=== PATIENT | female | born 1975 | race Caucasian/White ===

== ENCOUNTER → 2021-04-14 12:32 | Outpatient (CLI) | payer BC, SELFPAY ==
--- NOTE | ~2021-04-14 | MM_ITS ---
EXAMINATION: MM screening [facility] BI w rodney HISTORY: Screening mammogram TECHNIQUE: Craniocaudal and mediolateral oblique 3-D tomosynthesis images were obtained and synthetic 2-D images were generated. CAD analysis was submitted and interpreted. COMPARISON: 10/28/2017 bilateral digital screening mammogram BREAST PARENCHYMAL COMPOSITION: The breasts are heterogeneously dense, which may obscure small masses . FINDINGS: There is focal asymmetry in the lower outer right breast; diagnostic right mammogram is rec ommended, with ultrasound if required. Otherwise there is no evidence of suspicious mass, calcification, or architectural distortion to sug gest malignancy in either breast. There has been no other suspicious interval change. IMPRESSION: There is focal asymmetry in the lower outer right breast; diagnostic right mammogram is recommended, with ultrasound if required. BI-RADS Category 0: Incomplete: Needs additional imaging evaluation. Reviewed, dictated and finalized at location A. IMPRESSION: There is focal asymmetry in the lower outer right breast; diagnostic right mamm ogram is recommended, with ultrasound if required. BI-RADS Category 0: Incomplete: Needs additional imaging evaluation.
== END ==
PROVIDERS: Visit Provider Student in an Organized Health Care Education/Training Program
DX: Z12.31 Encounter for screening mammogram for malignant neoplasm of breast (principal); R92.8 Other abnormal and inconclusive findings on diagnostic imaging of breast
CPT/HCPCS: 77063; 77067

== ENCOUNTER → 2021-05-19 08:19 | Outpatient (CLI) | payer BC, SELFPAY ==
--- NOTE | ~2021-05-19 | MMUS_ITS ---
EXAMINATION: MM diagnostic jhonny RT w rodney, US breast RT complete HISTORY: Follow-up right breast asymmetry TECHNIQUE: Additional 3-D tomosynthesis images of the right breast were performed and synthetic 2-D i mages were generated. CAD analysis was submitted and interpreted. High resolution complete right [facility]ishna st ultrasound was performed. COMPARISON: 04/14/2021 BREAST PARENCHYMAL COMPOSITION: The breasts are heterogenously dense, which may obscure small masses. FINDINGS: MAMMOGRAPHIC FINDINGS: There are no discrete masses, calcifications or architectural distortion in the left breast. ULTRASOUND: Complete right breast ultrasound: At 9:00, 5 cm from the nipple, there is an irregular shaped hypoechoic mass measuring 4 mm. No signif icant posterior acoustic shadowing or internal vascularity. The margins are irregular. IMPRESSION: 1. Irregular shaped hypoechoic right breast mass measuring 4 mm at 9:00, 5 cm from the nipple. 2. Ultrasound-guided right breast biopsy recommended. BI-RADS category 4, suspicious findings. Reviewed, dictated and finalized at location A. IMPRESSION: 1. Irregular shaped hypoechoic right breast mass measuring 4 mm at 9:00, 5 cm f rom the nipple. 2. Ultrasound-guided right breast biopsy recommended. BI-RADS category 4, suspicious findings.
== END ==
PROVIDERS: Visit Provider Obstetrics & Gynecology
DX: R92.8 Other abnormal and inconclusive findings on diagnostic imaging of breast (principal)
CPT/HCPCS: 76641; 77061; 77065; G0279

== ENCOUNTER → 2023-08-17 10:45 | Outpatient (CLI) | payer BC, SELFPAY ==
--- NOTE | ~2023-08-17 | MM_ITS ---
EXAMINATION: MM screening [facility] BI w rodney HISTORY: Screening mammogram TECHNIQUE: Craniocaudal and mediolateral oblique 3-D tomosynthesis images were obtained and synthetic 2-D images were generated. CAD analysis was submitted and interpreted. COMPARISON: 05/19/2021, 04/14/2021, 10/28/2017 BREAST PARENCHYMAL COMPOSITION: The breasts are heterogeneously dense, which may obscure small masses . FINDINGS: No suspicious mass, calcification, or architectural distortion are identified in either xin ast to suggest malignancy. There has been no suspicious interval change. IMPRESSION: 1. No mammographic evidence of malignancy. 2. Recommend routine screening mammography in one year. BI-RADS Category 1: Negative Reviewed, dictated and finalized at location A.
== END ==
PROVIDERS: PCP Family Medicine; Visit Provider Obstetrics & Gynecology
DX: Z12.31 Encounter for screening mammogram for malignant neoplasm of breast (principal)
CPT/HCPCS: 77063; 77067

== ENCOUNTER 2023-08-26 00:56 | Day surgery (SDC) | payer BC, SELFPAY ==
[2023-08-13 15:20] VITALS: BMI 22.8
--- NOTE | 2023-08-24 09:25 | PM.HPGS ---
History of Present Illness History of Present Illness Consent: Risks, benefits, and alternatives have been discussed and questions answered. Patient agrees to proceed with procedure. Chief complaint: neoplasm screening Narrative: Aide José is a 48 year old female who is referred for colon cancer screening. Review of Systems Review of Systems: All systems reviewed & are unremarkable except as noted in HPI and below PMFSH Past Medical History Medical History Essential tremor Surgical History Surgical History H/O tubal ligation Family History Family History Mother Familial tremor Grandparent Familial tremor Social History Social History Smoking status: Never smoker Second hand tobacco smoke exposure: No Alcohol intake: current Alcohol use details: 2X monthly Substance use: never Substance use type: does not use Lack of Transportation: No Lack of Food: Never True Current Housing: I Have Housing Concerned About Future Housing: No Difficulty Paying Gas/Electric Bills: No Difficulty Paying for Meds: No Currently Unemployed: No Education: Associate Degree Difficulty w/ Childcare or Family Care: No Living arrangements: with family Occupation/Education: occupation Gender identity (if verbalized by the patient): Female Sexual Orientation (if Verbalized by the Patient): Straight or Heterosexual Spiritual care concerns: No Meds Home Medications and Allergies Home Medications Medication Instructions Recorded Confirmed Type loratadine 10 mg tablet (Claritin) 10 mg PO DAILY PRN allgery symptoms 01/28/23 08/13/23 History melatonin 10 mg capsule 10 mg PO QHS 01/28/23 08/13/23 History acetaminophen 500 mg tablet 500 mg PO Q6H PRN Pain 08/13/23 08/13/23 History propranolol 40 mg tablet 20 mg PO BID PRN tremor(s) 08/13/23 08/13/23 History Allergies Allergy/AdvReac Type Severity Reaction Status Date / Time sulfamethoxazole Allergy Mild Chest Pain Verified 08/26/23 09:21 [From Bactrim] trimethoprim [From Bactrim] Allergy Mild Chest Pain Verified 08/26/23 09:21 Exam Const: General: alert Orientation/consciousness: patient oriented x3 Resp: Auscultation: clear to auscultation bilaterally Cardio: Rhythm: regular rhythm GI: GI Palp: Yes Soft to palpation and No Tenderness to palpation present (GI) Neuro: General: patient oriented x3 Assessment and Plan Assessment and plan (1) Colon cancer screening: Code(s): Z12.11 - Encounter for screening for malignant neoplasm of colon Status: Acute Assessment and Plan: Colonoscopy with possible biopsy or polypectomy or cautery or injection of substances.
[2023-08-26 09:22] VITALS: BP 151/94; PULSE 88; RESP 18; TEMP 36.3; O2SAT 100
[2023-08-26] MEDS: LACTATED RINGERS 1,000 ML 150 ML IV CONT (09:31)
--- NOTE | 2023-08-26 09:57 | WPDANESEPPF ---
Anes - Initial Pre Proc Eval Procedure: Operation Date: 08/26/23 10:30 Proposed Procedures p Colonoscopy - Calvin Story MD Date/Time: 08/26/23 09:57 Surgeon: Calvin Story MD Pre Op Diagnosis: neoplasm screening Patient Data Age: 48 Gender: F Height: 1.57 m Weight: 55.6 kg Last Vital Signs Temp 97.3 F L 08/26/23 09:22 Pulse 88 08/26/23 09:22 Resp 18 08/26/23 09:22 BP 151/94 H 08/26/23 09:22 Pulse Ox 100 08/26/23 09:22 O2 Del Method Room Air 08/26/23 09:22 Allergies Allergy/AdvReac Type Severity Reaction Status Date / Time sulfamethoxazole Allergy Mild Chest Pain Verified 08/26/23 09:21 [From Bactrim] trimethoprim [From Bactrim] Allergy Mild Chest Pain Verified 08/26/23 09:21 Home Medications Medication Instructions Recorded Confirmed Type loratadine 10 mg tablet (Claritin) 10 mg PO DAILY PRN allgery symptoms 01/28/23 08/13/23 History melatonin 10 mg capsule 10 mg PO QHS 01/28/23 08/13/23 History acetaminophen 500 mg tablet 500 mg PO Q6H PRN Pain 08/13/23 08/13/23 History propranolol 40 mg tablet 20 mg PO BID PRN tremor(s) 08/13/23 08/13/23 History Patient hx anesthesia problems: none Family hx anesthesia problems: none Results Review: All pre-operative results and documents have been reviewed as part of the pre-operative evaluation. [facility] Past Medical History Medical History Essential tremor Surgical History Surgical History H/O tubal ligation Family History Family History Mother Familial tremor Grandparent Familial tremor Social History Social History Smoking status: Never smoker Second hand tobacco smoke exposure: No Alcohol intake: current Alcohol use details: 2X monthly Substance use: never Substance use type: does not use Lack of Transportation: No Lack of Food: Never True Current Housing: I Have Housing Concerned About Future Housing: No Difficulty Paying Gas/Electric Bills: No Difficulty Paying for Meds: No Currently Unemployed: No Education: Associate Degree Difficulty w/ Childcare or Family Care: No Living arrangements: with family Occupation/Education: occupation Gender identity (if verbalized by the patient): Female Sexual Orientation (if Verbalized by the Patient): Straight or Heterosexual Spiritual care concerns: No Anes - Eval Final PreProcedure Day of Procedure 08/26/23 09:57 Patient weight: normal Heart: regular rate and rhythm Lungs: clear to auscultation Airway: Mallampati scale class II Neurological: alert and oriented Last oral intake: >/= 8 hours ASA classification: II Emergent: no Anesthetic plan: proceed Anesthesia type and monitoring: general GIVS and standard monitoring Results Review: All pre-operative results and documents have been reviewed as part of the pre-operative evaluation. Informed Consent: The patient's anesthetic plan and its attendant risks and benefits were discussed with the patient/family/POA. Questions were solicited and answers provided to the satisfaction of the patient/family/POA.
[2023-08-26 10:56] VITALS: BP 99/57; PULSE 76; RESP 21; O2SAT 100
[2023-08-26 11:06] VITALS: BP 114/78; PULSE 59; RESP 19; O2SAT 99
[2023-08-26 11:16] VITALS: BP 138/86; PULSE 58; RESP 18; O2SAT 100
== END 2023-08-26 11:27 | disposition home or self-care (01) ==
PROVIDERS: PCP Family Medicine; Visit Provider Internal Medicine Gastroenterology
PROC: 0DJD8ZZ Inspection of Lower Intestinal Tract, Via Natural or Artificial Opening Endoscopic (ICD-10-PCS; CPT 45378; principal; 2023-08-26 10:30)
DX: Z12.11 Encounter for screening for malignant neoplasm of colon (principal); K63.5 Polyp of colon
CPT/HCPCS: 45380; 45385; 88305; J2001; J2704; J7120

== ENCOUNTER 2024-03-29 05:13 | Emergency (ER) | payer BC, SELFPAY ==
--- NOTE | ~2024-03-29 | XR_ITS ---
XR chest 2V DATE: 03/29/2024 05:47 INDICATION: Midsternal chest pain TECHNIQUE: PA and lateral views COMPARISON: None FINDINGS: Normal heart size. No hilar or mediastinal enlargement. Bilateral hyperinflation. No pulmonary infiltrate or consolidation, pleural effusion or pulmonary vascular congestion or pneumo thorax. Include skeletal structures are unremarkable. IMPRESSION: Bilateral hyperinflation Reviewed, dictated and finalized at location A. IMPRESSION: Bilateral hyperinflation
--- NOTE | 2024-03-29 05:14 | ECG_ITS ---
SEE SCANNED COPY FOR CONFIRMED REPORT MTDD
[2024-03-29 05:22] VITALS: BP 177/95; PULSE 71; RESP 14; TEMP 36.8; O2SAT 100
[2024-03-29 05:31] VITALS: BP 155/89; PULSE 91; RESP 17; O2SAT 100
[2024-03-29 05:33] VITALS: PULSE 95; O2SAT 100
[2024-03-29 05:36] LABS: Basophils Absolute Auto 0.1 K/mm3 (0.0-0.1); Basophils Percent Auto 0.8 % (0.2-1.2); Eosinophils Absolute Auto 0.2 K/mm3 (0-0.3); Hematocrit 41.4 % (37.0-47.0); Hemoglobin 14.1 g/dL (12.0-15.0); Immature Granulocyte Absolute 0.04 K/mm3 (0.00-0.031); Immature Granulocyte Percent A 0.4 % (0-0.5); Lymphocytes Absolute Auto 2.74 K/mm3 (0.9-3.2); Lymphocytes Percent Auto 25.8 % (18.3-44.2); Mean Corpuscular HGB Conc 34.1 g/dl (32-36); Mean Corpuscular Hemoglobin 30.7 pg (26-34); Mean Platelet Volume 9.7 fl (7.4-10.4); Monocytes Absolute Auto 0.8 K/mm3 (0.1-0.6); Monocytes Percent Auto 7.7 % (2.6-8.5); Neutrophils Absolute Auto 6.7 K/mm3 (1.3-6.7); Neutrophils Percent Auto 63.3 % (45.5-73.1); Platelet Count Result 200 k/mm3 (150-375); Red Cell Distribution Width 13.2 % (11.5-14.5); White Blood Count 10.6 K/mm3 (4.5-10.0)
[2024-03-29 05:47] LABS: INR 0.9; Prothrombin Time 12.3 Seconds (11.1-14.7)
[2024-03-29 05:48] LABS: Alanine Aminotransferase 14 U/L (6-35); Albumin Level 4.8 g/dL (3.5-5.1); Alkaline Phosphatase 87 U/L (38-126); Anion Gap 9 mmol/L (4-12); Aspartate Amino Transferase 18 U/L (14-36); Bilirubin,Total 0.6 mg/dL (0.2-1.3); Blood Urea Nitrogen 22 mg/dL (7-17); Calcium 9.6 mg/dL (8.4-10.2); Carbon Dioxide 25 mmol/L (22-30); Chloride 104 mmol/L (98-107); Estimated CRCL calculation 68 ml/min; Estimated Glomerular Filt Rate > 60; Glucose 99 mg/dL (65-110); Lipase 113 U/L (23-300); Partial Thromboplastin Time 28.3 Seconds (22.3-36.8); Potassium 3.5 mmol/L (3.4-5.0); Sodium 138 mmol/L (137-145)
--- NOTE | 2024-03-29 05:53 | ED.CHESTPAIN ---
HPI - Chest Pain General Chief Complaint: Chest Pain Stated Complaint: Chest pain, nausea Time Seen by Provider: 03/29/24 05:29 History of Present Illness HPI narrative: This is a 48-year-old female, with no significant past medical history, who presents to the emergency department complaining of chest pain and nausea. The patient describes the pain as constant, burning and sharp, substernal with some radiation underneath right breast. This is aggravated by movement, cough or direct pressure. She states approximately 1 hour prior to arrival, she woken felt nauseous. She denies change in the quality of her chest pain. She denies shortness of breath, weakness/numbness or cough. She has no other complaints at this time. Related Data Home Medications Medication Instructions Recorded Confirmed loratadine 10 mg tablet (Claritin) 10 mg PO DAILY PRN allgery symptoms 01/28/23 08/13/23 melatonin 10 mg capsule 10 mg PO QHS 01/28/23 08/13/23 acetaminophen 500 mg tablet 500 mg PO Q6H PRN Pain 08/13/23 08/13/23 propranolol 40 mg tablet 20 mg PO BID PRN tremor(s) 08/13/23 08/13/23 Allergies Allergy/AdvReac Type Severity Reaction Status Date / Time sulfamethoxazole Allergy Mild Chest Pain Verified 03/29/24 05:28 [From Bactrim] trimethoprim [From Bactrim] Allergy Mild Chest Pain Verified 03/29/24 05:28 Review of Systems Review of Systems: CONSTITUTIONAL: Denies fever, chills, or sweats. EYES: Denies visual changes, redness, or discharge. ENT: Denies rhinorrhea, congestion, sore throat, or otalgia. CARDIOVASCULAR: Chest pain Denies palpitations, or edema. RESPIRATORY: Denies cough or dyspnea. GASTROINTESTINAL: Nausea Denies abdominal pain, vomiting, or diarrhea. GENITOURINARY: LMP 1 week ago. Denies dysuria or hematuria. SKIN: Denies rash or itching. MUSCULOSKELETAL: Denies back pain, joint pain, or myalgia. NEUROLOGIC: Denies headache, numbness, dizziness, or weakness. PSYCHIATRIC: Denies anxiety or depression. PMFSH Past Medical History Medical History Essential tremor Surgical History Surgical History H/O tubal ligation Family History Family History Mother Familial tremor Grandparent Familial tremor Social History Social History Smoking status: Never smoker Second hand tobacco smoke exposure: No Alcohol intake: current Alcohol use details: 2X monthly Substance use: never Substance use type: does not use Lack of Transportation: No Lack of Food: Never True Current Housing: I Have Housing Concerned About Future Housing: No Difficulty Paying Gas/Electric Bills: No Difficulty Paying for Meds: No Currently Unemployed: No Education: Associate Degree Difficulty w/ Childcare or Family Care: No Living arrangements: with family Occupation/Education: occupation Gender identity (if verbalized by the patient): Female Sexual Orientation (if Verbalized by the Patient): Straight or Heterosexual Spiritual care concerns: No Exam Narrative: GENERAL: Well-developed, well-nourished, and in no acute distress. HEAD: Normocephalic, atraumatic. EYES: PERRLA and EOMI. CHEST: Clear to auscultation. No respiratory distress. No wheezes rales or rhonchi. Chest pain reproducible with palpation of the anterior chest wall HEART: Regular rate and rhythm. No murmur heard. Normal peripheral pulses. ABDOMEN: Soft, nontender, nondistended, normal active bowel sounds. EXTREMITIES: Normal range of motion. No edema. SKIN: Warm, dry, no rash. NEURO: Alert and oriented x3. No focal deficit. Moving all 4 limbs spontaneously PSYCH: Normal mood and affect. Course Course Emergency Course: 06:18 - CBC demonstrates mild white blood cell count elevation of 10.6 but is othe
[2024-03-29 05:59] LABS: Troponin I < 0.012 ng/mL (0.000-0.034)
[2024-03-29 06:00] VITALS: BP 135/80; PULSE 59; RESP 23; O2SAT 100
[2024-03-29] MEDS: BELLADONNA ALK/PHENOB ELIX 10 ML, MAG HYDROX/ALUMINUM HYD/SIMETH 30 ML, LIDOCAINE HCL 2... PO (06:18)
[2024-03-29] MEDS: ONDANSETRON INJ 4 MG/2 ML VIAL IV PUSH (06:18)
[2024-03-29 06:31] VITALS: BP 131/81; PULSE 60; RESP 13; O2SAT 100
== END 2024-03-29 06:59 | disposition home or self-care (01) ==
PROVIDERS: Emergency Provider Preventive Medicine Aerospace Medicine; PCP Family Medicine
DX: R07.89 Other chest pain (principal); R11.0 Nausea; R94.31 Abnormal electrocardiogram [ECG] [EKG]
CPT/HCPCS: 36415; 71046; 80053; 83690; 84484; 85025; 85610; 85730; 93005; 96374; 99284; A9270; J2405

== ENCOUNTER 2025-07-09 12:24 | Outpatient (CLI) | payer BC, SELFPAY ==
--- NOTE | ~2025-07-09 | MM_ITS ---
EXAMINATION: MM screening jhonny BI w rodney HISTORY: Screening mammogram TECHNIQUE: Craniocaudal and mediolateral oblique 3-D tomosynthesis images were obtained and synthetic 2-D images were generated. CAD analysis was submitted and interpreted. COMPARISON: 08/17/2023, 05/19/2021 BREAST PARENCHYMAL COMPOSITION:Dense: The breasts are heterogeneously dense, which may obscure small masses. FINDINGS: No suspicious mass, calcification, or architectural distortion are identified in either breast to suggest malignancy. There has been no suspicious interval change. IMPRESSION: No mammographic evidence of malignancy. Recommend routine screening mammography in one year. BI-RADS Category 1: Negative Reviewed, dictated and finalized at location .
== END 2025-07-09 12:25 | disposition home or self-care (01) ==
LOC: MICIMG 12:25
PROVIDERS: PCP Family Medicine; Visit Provider Obstetrics & Gynecology
DX: Z12.31 Encounter for screening mammogram for malignant neoplasm of breast (principal)
CPT/HCPCS: 77063; 77067

== ENCOUNTER 2025-08-18 15:09 | Emergency (ER) | payer OTHER, BC, SELFPAY ==
--- OUTSIDE RECORDS SUMMARY | 2025-08-18 15:11 | XMS_ITS | Clinical Summary ---
Author Organization [facility] Address [address] [place] [address] Care Team Providers Care Survey Rodman Name Role Phone Unavailable Primary Care Provider Unavailabl e Source Comments [facility],non-owned Affiliates and Associated Physician Practices is amultiple site organization consisting of ambulatory clinics and hospital sitesin [place], [place], [place] and [place]. This disclosure is being madepursuant to the Care Everywhere program and may not contain all information available regarding this patient. 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 Gender Identity Not on file Sexual Orientation Not on file Plan of Treatment Health Maintenance Due Date Last Done Comments COLOGUARD (AGES 45-75) - COL ON CA SCREENING 1977 COLON MONITORING 1977 COLONOSCOPY - COLON CA SCREENING 1977 CT COLONOGRAPHY - COLON CA SCREENING 1977 Colorectal Cancer Screening 1977 FIT - COLON CA SCREENING 1977 FLEX SIG - COLON CA SCREENING 1977 LIPID TESTING 1977 MAMMOGRAM 1977 HIV SCREENING 1992 HEPATITIS C SCREENING 04/12/1995 DTAP/TDAP/TD VACCINES (1 - Tdap) 1996 HEPATITIS B VACCINE (1 of 3 - 19+ 3-dose series) 1996 PAP SMEAR 1998 DEPRESSION SCREENING 11/18/2024 COVID-19 VACCINE (1 - 2023-2 5 season) 2025 INFLUENZA VACCINE (#1) 2025 ZOSTER VACCINE (1 of 2) 2027 HIB VACCINE Aged Out No longer eligi ble based on patient's age to complete this topic HPV VACCINE Aged Out No longer eligi ble based on patient's age to complete this topic MENINGOCOCCAL (Group B) VACC INE SHARED DECISION-MAKING Aged Out No longer eligibl e based on patient's age to complete this topic MENINGOCOCCAL GROUPS A/C/Y/W VACCINE Aged Out No longer eligible b ased on patient's age to complete this topic PNEUMOCOCCAL VACCINE Aged Out No long er eligible based on patient's age to complete this topic Insurance [facility]
--- OUTSIDE RECORDS SUMMARY | 2025-08-18 15:11 | XMS_ITS | Clinical Summary ---
Author Organization [facility] Address [address] [place] [address] Care Team Providers Care Deaf Interpreter Name Role Phone Cy Humphrey MD Primary Care Provider [phone] Allergies Active Allergy Reactions Criticality Noted Date Comments Sulfamethoxazole-Trimethop rim Chest tightness,Palpitations Medium 06/19/2021 Medications loratadine (CLARITIN) 10 mg tablet Take 10 mg by mouth daily Active azelastine-flut icasone 137-50 mcg/spray spray,non-aeros ol Administer into affected nostril(s) 2 (two) times a day Active diphenhydrAMINE (diphenhydrAMIN E) 25 mg capsule Take 25 mg by mouth every 6 (six) hours as needed for itching Active acetaminophen (Tylenol Extra Strength) 500 mg tablet Take 500 mg by mouth every 6 (six) hours as needed for pain Active Active Problems Problem Noted Date Diagnosed Date Mammogram abnormal 06/19/2021 Surgical History Surgery Date Site/Laterality Comments TUBAL LIGATION Family History Medical History Relation Name Comments Breast cancer Maternal Grandmother Leukemia Maternal Grandmother Stomach cancer Paternal Grandfather Liver cancer Paternal Grandmother Pancreatic cancer Paternal Grandmother Relation Name Status Comments Maternal Grandmother Paternal Grandfather Paternal Grandmother Social History Tobacco Use Types Packs/Day Years Used Date Smoking Tobacco: Never Personal Safety Answer Date Recorded Getting School Help Needed Not on file 02/01 Comments No Sex and Gender Information Value Date Recorded Sex Assigned at Not on file Legal Sex Female 10:07 AM CDT Gender Identity Not on file Sexual Orientation Not on file Obstetrics History Last Filed Vital Signs Vital Sign Reading Time Taken Comments Blood Pressure - - Pulse - - Temperature - - Respiratory Rate - - Oxygen Saturation - - Inhaled Oxygen Concentration - - Weight 54.4 kg (120 lb) 06/19/2021 12:15 PM CDT Height 157.5 cm (5' 2) 06/19/2021 12:15 PM CDT Body Mass Index 21.95 06/19/2021 12:15 PM CDT Plan of Treatment Not on file Insurance [employer] Care Teams Deaf Interpreter Relationship Specialty Start Date End Date Cy Humphrey MD [address] [place] [id number] PCP - General Family Medicine 05/23/21
[2025-08-18 15:23] VITALS: BP 179/91; PULSE 87; RESP 16; TEMP 36.4; O2SAT 100
--- NOTE | 2025-08-18 16:31 | ED.GENADULT ---
HPI - General Adult General Chief complaint: Unspecified Stated complaint: Needle stick at work ([employer]) Time Seen by Provider: 08/18/25 16:31 Source: patient Mode of arrival: ambulatory Limitations: no limitations History of Present Illness HPI narrative: Patient is a 50-year-old female who presents the ED with report of a needlestick injury. Patient works at [employer] and was giving a patient a SQ injection into his arm when she accidentally sustained a needlestick injury to her left thumb. Patient is a known IV drug user, but denies any known communicable diseases. He did consent to having his blood work tested. Patient is not aware of results yet. Tetanus UTD Related Data Home Medications ?Medication ?Instructions ?Recorded ?Confirmed ?Last Taken ?Type loratadine 10 mg tablet (Claritin) 10 mg PO DAILY PRN allgery symptoms 01/28/23 01/15/25 Unknown History melatonin 10 mg capsule 10 mg PO QHS 01/28/23 01/15/25 Unknown History acetaminophen 500 mg tablet 500 mg PO Q6H PRN Pain 08/13/23 01/15/25 Unknown History Allergies Allergy/AdvReac Type Severity Reaction Status Date / Time sulfamethoxazole (From Allergy Mild Chest Pain Verified 08/18/25 15:09 Bactrim) trimethoprim (From Bactrim) Allergy Mild Chest Pain Verified 08/18/25 15:09 Review of Systems Review of Systems: All systems reviewed & are unremarkable except as noted in HPI. All systems reviewed & are unremarkable except as noted in HPI and below PMFSH Past Medical History Medical History (Updated 08/18/25 @ 16:37 by Sheree Luque PA-C) Chronic lower back pain Seasonal allergies Essential tremor Surgical History Surgical History H/O tubal ligation Family History Family History Mother Familial tremor Grandparent Familial tremor Social History Social History Smoking status: Never smoker Second hand tobacco smoke exposure: No Alcohol intake: current Alcohol use details: 2X monthly Substance use: never Substance use type: does not use Lack of Transportation: No Lack of Food: Never True Current Housing: I Have Housing Concerned About Future Housing: No Difficulty Paying Gas/Electric Bills: No Difficulty Paying for Meds: No Currently Unemployed: No Education: Associate Degree Difficulty w/ Childcare or Family Care: No Living arrangements: with family Occupation/Education: occupation Gender identity (if verbalized by the patient): Female Sexual Orientation (if Verbalized by the Patient): Straight or Heterosexual Spiritual care concerns: No Exam Narrative: GENERAL: Well appearing, well-nourished, non-toxic, in no acute distress. HEAD: Normocephalic, atraumatic. RESPIRATORY: Airway patent, respirations nonlabored. CARDIOVASCULAR: Regular rate and rhythm MUSCULOSKELETAL: Moves all extremities. No gross deformities. SKIN: Warm, dry, normal color. Small pinpoint puncture wound to finger pad of L 1st digit. No active bleeding or surrounding erythema. NEURO: A&O X3. Speech clear. PSYCHIATRIC: Appropriate mood and affect. Normal interaction. Course Vital Signs Vital signs: Vital Signs Temperature 97.6 F 08/18/25 15:23 Pulse Rate 87 08/18/25 15:23 Respiratory Rate 16 08/18/25 15:23 Blood Pressure 179/91 H 08/18/25 15:23 Pulse Oximetry 100 08/18/25 15:23 Temperature 97.6 F 08/18/25 15:23 Pulse Rate 87 08/18/25 15:23 Respiratory Rate 16 08/18/25 15:23 Blood Pressure 179/91 H 08/18/25 15:23 Pulse Oximetry 100 08/18/25 15:23 Medical Decision Making MDM Narrative Medical decision making narrative: Needlestick protocol ordered. Patient advised to have close follow-up with PCP for repeat laboratory testing at 3 and 6 months intervals. Tetanus UTD The other patient involved did consent to blood work testing and does not have any known communicable diseases. Patient's testing today negative. Discussed HIV prophylaxis and patient deferred at this time. Given return precautions. D/C in stable condition. Medical Records Medical records reviewed: Yes I reviewed the external patient's medical records. Vital Signs Vital Signs: Vital Signs Temperature 97.6 F 08/18/25 15:23 Pulse Rate 87 08/18/25 15:23 Respiratory Rate 16 08/18/25 15:23 Blood Pressure 179/91 H 08/18/25 15:23 Pulse Oximetry 100 08/18/25 15:23 Temperature 97.6 F 08/18/25 15:23 Pulse Rate 87 08/18/25 15:23 Respiratory Rate 16 08/18/25 15:23 Blood Pressure 179/91 H 08/18/25 15:23 Pulse Oximetry 100 08/18/25 15:23 Lab Data Lab results reviewed: Yes I reviewed the patient's lab results. Labs: Lab Results 08/18/25 Range/Units 16:37 Hep Bs Antigen Negative (Negative) Hepatitis C Ab Screen Negative (Negative) HIV 1&2 Ab/P24 Ag 4thGn Negative (Negative) Discharge Plan Discharge Clinical Impression: Needle stick injury of finger Patient Disposition: Home Condition: Stable Instructions: Antibiotic Form, Needle Stick Injuries (ED) Additional Instructions: Follow-up with your primary care doctor for repeat testing at 3 and 6 month intervals. Patient Language: Turkmen Prescriptions: No Action loratadine [Claritin] 10 mg tablet 10 mg PO DAILY PRN (Reason: allgery symptoms) melatonin 10 mg capsule 10 mg PO QHS propranolol 40 mg tablet 20 mg PO BID PRN (Reason: tremor(s)) Qty: 100 1RF acetaminophen 500 mg Tablet 500 mg PO Q6H PRN (Reason: Pain) Follow-up/Referrals: Cy Humphrey MD [Primary Care Provider, Family Practice] Time of Disposition: 16:39
--- OUTSIDE RECORDS SUMMARY | 2025-08-18 16:48 | XMS_ITS | Clinical Summary ---
Author Organization [facility] Address [address] [place] [address] Care Team Providers Care Email Deployment Specialist Name Role Phone Unavailable Primary Care Provider Unavailabl e Source Comments [facility],non-owned Affiliates and Associated Physician Practices is amultiple site organization consisting of ambulatory clinics and hospital sitesin [place], [place], [place] and [place]. This disclosure is being madepursuant to the Care Everywhere program and may not contain all information available regarding this patient. 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
--- OUTSIDE RECORDS SUMMARY | 2025-08-18 16:48 | XMS_ITS | Clinical Summary ---
Author Organization [facility] Address [address] [place] [address] Care Team Providers Care Chief Pilot Name Role Phone Cy Humphrey MD Primary Care Provider [phone] Allergies Active Allergy Reactions Criticality Noted Date [...] ANTH TRADITIONAL BLUE ACCESS OOS Care Teams Chief Pilot Relationship Specialty Start Date End Date Cy Humphrey MD [address] [place] [id number] PCP - General Family Medicine 05/23/21
[2025-08-18 17:28] LABS: Hepatitis B Surface Antigen Negative (Negative)
[2025-08-18 17:45] LABS: HIV 1/2 Ab P24 Ag Result Negative (Negative)
== END 2025-08-18 16:52 | disposition home or self-care (01) ==
LOC: ANHED 16:47
PROVIDERS: Emergency Provider Physician Assistant; PCP Family Medicine
DX: S61.032A Puncture wound without foreign body of left thumb without damage to nail, initial encounter (principal); W46.1XXA Contact with contaminated hypodermic needle, initial encounter; Y93.F9 Activity, other caregiving
CPT/HCPCS: 36415; 86703; 86803; 87340; 99283; G0432